=== PATIENT | female | born 2000 | race Hispanic/Latino ===

== ENCOUNTER 2024-04-17 14:31 | Day surgery (SDC) | payer MEDICAID ==
[2024-04-17 14:57] VITALS: BMI 36.0
[2024-04-17] MEDS ORDERED: hydrALAZINE 20 MG/ML VIAL SLOW IVP PRN (16:17)
== END 2024-04-17 17:21 | disposition home or self-care (01) ==
LOC: CSHLD/OP 14:31
PROVIDERS: ATTEND Obstetrics & Gynecology
DX: O47.1 False labor at or after 37 completed weeks of gestation (principal); Z3A.39 39 weeks gestation of pregnancy
CPT/HCPCS: 99283

== ENCOUNTER 2024-04-25 18:00 | Inpatient (IN) | payer MEDICAID ==
[2024-04-25 18:35] VITALS: BMI 39.4
[2024-04-25] MEDS ORDERED: Ondansetron PF 4 MG/2 ML Vial IVP PRN (19:11)
[2024-04-25] MEDS ORDERED: hydrALAZINE 20 MG/ML VIAL SLOW IVP PRN (19:11)
[2024-04-25] MEDS ORDERED: Tranexamic Acid 1,000 MG/10 ML VIAL IVP PRN (19:11)
[2024-04-25] MEDS ORDERED: Misoprostol 200 MCG TAB PR PRN (19:11)
[2024-04-25] MEDS ORDERED: Diphenoxylate HCl/Atropine Tablet PO PRN (19:11)
[2024-04-25] MEDS ORDERED: Acetaminophen 500 MG TAB PO PRN (19:11)
[2024-04-25] MEDS ORDERED: Promethazine HCl 25 MG/ML VIAL IM PRN (19:11)
[2024-04-25] MEDS ORDERED: Oxytocin 30 units/NS 500 ML 500 ML IV SCH (19:15)
[2024-04-25 20:03] LABS: #Basophils 0.02 10x3/uL (0.0-0.2); #Eosinophils 0.05 10x3/uL (0.0-0.5); #Neutrophils 5.96 10x3/uL (1.5-8.4); %Basophils 0.2 % (0.0-2.0); %Eosinophils 0.6 % (0.0-6.0); %Lymphocytes 22.5 % (18.0-47.0); %Monocytes 6.9 % (0.0-10.0); %Neutrophils 68.4 % (40.0-75.0); Hematocrit 31.6 % (34.9-44.5); Hemoglobin 10.5 g/dL (12.0-15.5); Mean Corpuscular HGB CONC 33.2 g/dL (32.0-36.0); Mean Corpuscular Hemoglobin 29.3 pg (27.0-33.0); Mean Corpuscular Volume 88.3 fL (81.6-98.3); Platelet Count 317 10x3/uL (150-450); Red Blood Cell (RBC) Count 3.58 10x6/uL (3.90-5.03); White Blood Cell (WBC) Count 8.7 10x3/uL (3.5-10.5)
[2024-04-25 20:22] LABS: ALT (SGPT) 9 U/L (8-55); AST (SGOT) 15 U/L (5-34); Albumin 2.9 g/dL (3.5-5.0); Alkaline Phosphatase 216 U/L (40-110); Anion Gap 14 mmol/L (10-20); BUN (Urea Nitrogen) 9 mg/dL (7.0-18.7); Bilirubin, Total 0.2 mg/dL (0.2-1.2); Calc. Creatinine Clearance 195 mL/min (70-130); Carbon Dioxide 19 mmol/L (22-29); Chloride 108 mmol/L (98-107); Estimated GFR 117; Globulin 3.5 g/dL (2.4-3.5); Glucose 103 mg/dL (70-105); Potassium 4.1 mmol/L (3.5-5.1); Protein, Total 6.4 g/dL (6.0-8.3); Sodium 137 mmol/L (136-145)
[2024-04-25] MEDS: Misoprostol 100 MCG TAB VAG SCH (21:06)
[2024-04-25 21:41] LABS: HBsAg Index 0.18 S/CO (0-0.99); HIV (1/2) Antibody/Antigen Non-Reactive (NonReactive); HIV 1/2 INDEX 0.08 S/CO (<1.00); Hep B Surf Ag - L&D Non-Reactive S/CO (NonReactive); Syphilis Antibody Nonreactive (Nonreactive); Syphilis Antibody Index 0.06 S/CO (<1.00 Non-Reactive)
[2024-04-25 22:01] LABS: Amphetamine Not Detected (NotDetected); Barbiturates Screen Not Detected (NotDetected); Benzodiazepine Screen Not Detected (NotDetected); Cocaine Metabolite Screen Not Detected (NotDetected); Methadone Not Detected (NotDetected); Methamphetamine Not Detected (NotDetected); Opiate Screen Not Detected (NotDetected); Oxycodone Screen Not Detected (NotDetected); Phencyclidine (PCP) Not Detected (NotDetected); THC/Cannabinoid Screen Not Detected (NotDetected); Tricyclic Screen Not Detected (NotDetected)
[2024-04-25] MEDS: Penicillin G Potassium 5 MILL.UNITS in Sodium Chloride 0.9% 100 ML IVPB SCH (23:10)
[2024-04-26] MEDS: Penicillin G 2.5 MILL.units 2.5 MILL.UNITS in Premix 1 BAG IVPB SCH (03:55)
[2024-04-26] MEDS: Oxytocin 30 units/NS 500 ML 500 ML IV SCH (14:16)
[2024-04-26] MEDS: fentaNYL/Ropivacaine Epidural 100 ML ONE (18:07)
[2024-04-26] MEDS ORDERED: Ondansetron PF 4 MG/2 ML Vial IVP PRN (18:21)
[2024-04-26] MEDS ORDERED: diphenhydrAMINE 50 MG/ML VIAL IVP PRN (18:21)
[2024-04-26] MEDS ORDERED: Naloxone HCl 0.4 mg/ml Vial IVP PRN ×2 (18:21)
[2024-04-26] MEDS ORDERED: Moisturizing Cream (Eucerin) 113 GM JAR TOP PRN (18:21)
[2024-04-26] MEDS ORDERED: Lactated Ringer's 500 ML IV PRN (18:21)
[2024-04-26] MEDS ORDERED: Acetaminophen 325 MG TAB PO PRN (18:21)
[2024-04-26] MEDS ORDERED: ePHEDrine Sulfate 50 MG/10 ML VIAL SLOW IVP PRN (18:21)
[2024-04-26] MEDS ORDERED: Promethazine HCl 25 MG/ML VIAL IM PRN (18:21)
[2024-04-26] MEDS ORDERED: Communication Order-Pharmacy FS SCH (18:30)
[2024-04-27] MEDS: fentaNYL 2 mcg/Ropivacaine 0.2% Epidural 100 ML CADD EPIDURAL SCH (03:46)
[2024-04-27] MEDS ORDERED: Famotidine/PF 20 mg/2ml Vial SLOW IVP PRN (05:46)
[2024-04-27] MEDS ORDERED: Bicitra 30 ML UDCUP PO PRN (05:46)
[2024-04-27] MEDS ORDERED: CEFAZOLIN 2 GM in Sodium Chloride 0.9% 100 ML IVPB SCH (06:00)
[2024-04-27 06:39] LABS: Analyzer IN Cardio CS NICU; Critical Notified By: S. CREAMER, RRT; RapidComm Collect By cbn
[2024-04-27 06:42] LABS: Analyzer IN Cardio CS NICU; Critical Notified By: S. CREAMER, RRT; RapidComm Collect By CBN; pH (Cord, venous) 7.357 (7.250-7.350)
[2024-04-27] MEDS ORDERED: Promethazine HCl 25 MG/ML VIAL IM PRN (06:46)
[2024-04-27] MEDS ORDERED: Naloxone HCl 0.4 mg/ml Vial IV PRN (06:46)
[2024-04-27] MEDS ORDERED: Ondansetron PF 4 MG/2 ML Vial IVP PRN ×3 (06:46→07:32)
[2024-04-27] MEDS ORDERED: Meperidine HCl/PF 25 MG (1 mL) VIAL SLOW IVP PRN (06:46)
[2024-04-27] MEDS ORDERED: diphenhydrAMINE 50 MG/ML VIAL IVP PRN (06:46)
[2024-04-27] MEDS ORDERED: Moisturizing Cream (Eucerin) 113 GM JAR TOP PRN (06:46)
[2024-04-27] MEDS ORDERED: Naloxone HCl 0.4 mg/ml Vial IVP PRN ×2 (06:46)
[2024-04-27] MEDS ORDERED: fentaNYL 50 mcg/mL 1 mL Vial SLOW IVP PRN ×2 (06:46→10:34)
[2024-04-27] MEDS ORDERED: Communication Order-Pharmacy FS SCH ×2 (07:00→10:45)
[2024-04-27] MEDS ORDERED: diphenhydrAMINE 25 MG CAP PO PRN (07:32)
[2024-04-27] MEDS ORDERED: hydrALAZINE 20 MG/ML VIAL SLOW IVP PRN (07:32)
[2024-04-27] MEDS ORDERED: Misoprostol 200 MCG TAB PR PRN (07:32)
[2024-04-27] MEDS ORDERED: Lanolin Ointment 7 GM TUBE TOP PRN (07:32)
[2024-04-27] MEDS ORDERED: Acetaminophen 325 MG TAB PO PRN (07:32)
[2024-04-27] MEDS ORDERED: Methylergonovine 0.2 MG TAB PO PRN (07:32)
[2024-04-27] MEDS ORDERED: Simethicone Chewable 80 MG TAB PO PRN (07:32)
[2024-04-27] MEDS ORDERED: Bisacodyl 10 MG SUPP PR PRN (07:32)
[2024-04-27] MEDS ORDERED: Methylergonovine 0.2 MG/ML VIAL IM PRN (07:32)
[2024-04-27] MEDS ORDERED: Oxytocin 30 units/NS 500 ML 500 ML IV SCH (07:45)
[2024-04-27] MEDS ORDERED: Bupivacaine/Epinephrine 0.25% 30 ML VIAL ONE (08:00)
[2024-04-27] MEDS: Promethazine HCl 25 MG/ML VIAL IM PRN (11:10)
[2024-04-27] MEDS: HYDROmorphone 0.5 MG/0.5 ML SYRINGE SLOW IVP PRN (11:11)
[2024-04-27] MEDS: Ketorolac Tromethamine 30 MG (1 mL) VIAL IVP SCH (13:30)
[2024-04-27] MEDS: Azithromycin 500 MG VIAL ONE (14:09)
[2024-04-27] MEDS: Lidocaine 2% MPF 10 ML AMP (For Epidural Use) ONE (14:10)
[2024-04-27] MEDS: Dexamethasone 10 MG/ML VIAL ONE (14:10)
[2024-04-27] MEDS: Dexmedetomidine 200 MCG/2 ML VIAL ONE ×2 (14:10)
[2024-04-27] MEDS: Ondansetron PF 4 MG/2 ML Vial ONE (14:10)
[2024-04-27] MEDS: CEFAZOLIN 2 GM VIAL ONE (14:10)
[2024-04-27] MEDS: Docusate 100 MG CAP PO SCH (14:11)
[2024-04-27] MEDS: Ferrous Sulfate 325 MG TAB PO SCH (14:11)
[2024-04-27] MEDS: Prenatal Vitamin 1 TAB PO SCH (14:12)
[2024-04-27] MEDS ORDERED: HYDROcodone/Acetaminophen 5/325 mg Tablet PO PRN (22:45)
[2024-04-28] MEDS: fentaNYL 50 mcg/mL 1 mL Vial ONE (02:00)
[2024-04-28] MEDS: Oxytocin 10 UNITS/ML VIAL ONE (02:00)
[2024-04-28] MEDS: Ketorolac Tromethamine 30 MG (1 mL) VIAL ONE (02:00)
[2024-04-28] MEDS: ePHEDrine Sulfate 50 MG/10 ML VIAL ONE (02:01)
[2024-04-28] MEDS: Tranexamic Acid 1,000 MG/10 ML VIAL ONE (02:01)
[2024-04-28] MEDS: Morphine PF 10 MG/10 ML VIAL ONE (02:01)
[2024-04-28] MEDS: HYDROcodone/Acetaminophen 5/325 mg Tablet PO PRN (06:04)
[2024-04-28] MEDS: Ketorolac Tromethamine 30 MG (1 mL) VIAL IVP SCH (06:11)
[2024-04-28 06:29] LABS: Hematocrit 23.3 % (34.9-44.5); Hemoglobin 7.8 g/dL (12.0-15.5); Mean Corpuscular HGB CONC 33.5 g/dL (32.0-36.0); Mean Corpuscular Hemoglobin 29.7 pg (27.0-33.0); Mean Corpuscular Volume 88.6 fL (81.6-98.3); Mean Platelet Volume 10.1 fL (7.4-10.4); Platelet Count 243 10x3/uL (150-450); RBC Distribution Width 14.2 % (11.5-14.5); Red Blood Cell (RBC) Count 2.63 10x6/uL (3.90-5.03)
[2024-04-28] MEDS: Boostrix 0.5 ML (Tdap) VIAL (>/=7 yrs of age) IM ONE (07:08)
[2024-04-28] MEDS: Misoprostol 100 MCG TAB PO SCH (07:10)
[2024-04-28] MEDS: Ibuprofen 800 MG TAB PO SCH (16:07)
[2024-04-29 11:16] VITALS: BP 134/87; TEMP 98.7
== END 2024-04-29 13:20 | disposition home or self-care (01) | DRG 788 ==
LOC: CSHLD/OP 18:00 → CSHLD 19:34 → CSHPP 04-27 10:14
PROVIDERS: ADMIT Obstetrics & Gynecology; ATTEND Obstetrics & Gynecology
PROC: 10D00Z1 Extraction of Products of Conception, Low, Open Approach (ICD-10-PCS; principal; 2024-04-25)
DX: O13.4 Gestational [pregnancy-induced] hypertension without significant proteinuria, complicating childbirth (principal); O76 Abnormality in fetal heart rate and rhythm complicating labor and delivery; O99.344 Other mental disorders complicating childbirth; F32.A Depression, unspecified; F41.9 Anxiety disorder, unspecified; O99.824 Streptococcus B carrier state complicating childbirth; O90.81 Anemia of the puerperium; D50.0 Iron deficiency anemia secondary to blood loss (chronic); Z37.0 Single live birth; Z3A.40 40 weeks gestation of pregnancy
CPT/HCPCS: 36415; 51702; 76819; 80053; 80306; 82570; 82805; 84156; 85014; 85018; 85025; 85027; 86780; 86850; 86900; 86901; 87340; 87389; 99285; J1100; J1885; J2274; J2405; J2540; J2550; J2590; J3010